=== PATIENT | male | born 1995 ===

== ENCOUNTER 2019-05-25 17:30 | Emergency (ER) | payer MEDICAID, SELFPAY ==
--- NOTE | 2019-05-25 18:40 | RAD ---
RIGHT SMALL FINGER THREE VIEWS: HISTORY: Injured right small finger. Swelling in right fifth digit. FINDINGS: No obvious fracture is seen involving the right small finger. Lateral view of the base of the middle phalanx is partially obscured due to overlying structures but again no definitive fracture is seen an d there is no evidence of a dislocation. IMPRESSION: No acute osseous abnormality, right small finger. If the patient continues to have pain and swelling, follow-up imaging is advised. POS: OFF
== END 2019-05-25 19:20 | disposition home or self-care (01) ==
LOC: ERS 17:30
DX: L03.011 Cellulitis of right finger (principal)